=== PATIENT | male | born 1990 | race Caucasian/White ===

== ENCOUNTER 2016-11-18 22:27 | Emergency (ER) | payer BC ==
--- NOTE | 2016-11-18 23:28 | ER NURSING DOCUMENTATION ---
Nurse's Notes [facility] Name:Tevin Parks Age:26 yrs Sex:Male :1990 Arrival Date:11/18/2016 Time:22:27 Bed6 Private MD:Physician, No Diagnosis:Thigh Contusion;Lower Limb Abrasion w/o Infection Presentation: 11/18 22:40 Presenting complaint: Patient states: Pt states he was sliding down snow up at [place] [facility] and ran into a rock at the bottom. No head injury reported. Only injury is abrasions to upper left thigh and leg with swelling to upper left thigh. Pt took 800mg ibuprofen and hiked out for 4 hours after injury. Transition of care: Home. Notified ED Physician of Dr. Hennessy notified. 22:40 Acuity: [place] 4 [facility] 22:40 Method Of Arrival: Walk In [facility] 22:43 Care prior to arrival: Medication(s) given: Ibuprofen. 2 Triage Assessment: 22:44 Compartment Syndrome symptoms: Unable to determine. General: Appears in no apparent 2 distress, Behavior is cooperative, pleasant. Pain: Complains of pain in lateral aspect of right thigh Pain currently is 5 out of 10 on a pain scale. Neuro: No deficits noted. Respiratory: Breath sounds are clear bilaterally. Musculoskeletal: Reports pain in lateral aspect of right thigh. Injury Description: Abrasion swelling. Historical: - Allergies: No known drug Allergies; - Home Meds: 1. None - PMHx: None; - PSHx: None; - Tetanus: < 10 years. - Ebola Screening: : Patient negative for fever greater than or equal to 101.5 degrees Fahrenheit, and additional compatible Ebola Virus Disease symptoms. Patient denies exposure to infectious person. Patient denies travel to an Ebola-affected area in the 21 days before illness onset. No symptoms or risks identified at this time. . - Immunization history: Flu Vaccine < 1 year. - Social history: Smoking status: Patient states was never smoker of tobacco. Patient/guardian denies using alcohol, street drugs. Screenin:46 Infectious Disease Risk None. Abuse screen: Denies threats or abuse. Nutritional mk2 screening: No deficits noted. Assessment: 22:46 See Triage Assessment done by same RN. 2 Vital Signs: 22:45 BP 139 / 74; Pulse 79; Resp 15; Temp 98.9; Pulse Ox 97% on R/A; Weight 73.48 kg; Height [facility] 5 ft. 10 in. (177.80 cm); Pain 5/10; 22:45 Body Mass Index 23.24 (73.48 kg, 177.80 cm) [facility] [place] Coma Score: 22:50 Eye Response: spontaneous(4). Verbal Response: oriented(5). Motor Response: obeys cd commands(6). Total: 15. ED Course: 22:32 Patient arrived in ED. [facility] 22:32 Physician, No is Private Physician. [email or web address] 22:40 Breonna Lockwood, RN is Primary Nurse. 2 22:42 Triage completed. 2 22:45 Arm band placed on Bed in low position Call Light in Reach Gowned HOB Elevated Side [facility] rails up x1. 22:46 Valuables Remains with patient. Ice pack to injury. 2 22:46 Wound care was cleaned with Hibiclens. [facility] 23:21 Fidencio Hennessy MD is Attending Physician. cd Administered Medications: No medications were administered Outcome: 23:22 Discharge ordered by . cd 23:27 Discharged to home ambulatory. [facility] 23:27 Condition: good 23:27 Discharge Assessment: Patient awake, alert and oriented x 3. No cognitive and/or functional deficits noted. Patient verbalized understanding of disposition instructions. 23:27 Discharge instructions given to patient, Instructed on discharge instructions, follow up and referral plans. medication usage. 23:27 Patient left the ED. [facility] 11/19 12:26 Discharge F/U Call: Unable to reach: left voicemail: tg Signatures: Mahesh Nance RN RN tg Daley, Chris, MD MD cd Kruger, Meg RN RN Lyndsay Sims [facility]
--- NOTE | 2016-11-18 23:28 | ER PHYSICIAN DOCUMENTATION ---
Physician Documentation [facility] Name:Tevin Parks Age:26 yrs Sex:Male :1990 Arrival Date:11/18/2016 Time:22:27 Bed6 Private MD:Physician, No ED Fidencio Downing Disposition: 11/18/16 23:22 Discharged to Home/Self Care. Impression: Thigh Contusion, Lower Limb Abrasion w/o Infection. - Condition is Good. - Discharge Instructions: ABRASION, CONTUSION, Lower Extremity. - Medical Reconciliation form form. - Follow up: Private Physician; When: 7 - 10 days; Reason: Recheck today's complaints, Continuance of care. - Problem is new. - Symptoms have improved. HPI: 11/18 22:45 This 26 yrs old Male presents to ER via Walk In with complaints of Leg Injury cd - RIGHT. 22:45 The patient presents with an abrasion, a contusion. The complaints affect the lateral cd aspect of right thigh. Context: The problem was sustained outdoors, resulted from a direct blow, to a rock while sliding down a snow slope in [facility], the patient can fully bear weight, the patient is able to ambulate, without difficulty, Patient [place]. Onset: The symptom(s)/episode began/occurred acutely, today. Associated signs and symptoms: The patient has no apparent associated signs or symptoms. Severity of symptoms: At their worst the symptoms were moderate, in the emergency department the symptoms have improved, moderately. The patient has not experienced similar symptoms in the past. Historical: - Allergies: No known drug Allergies; - Home Meds: 1. None - PMHx: None; - PSHx: None; - Tetanus: < 10 years. - Ebola Screening: : Patient negative for fever greater than or equal to 101.5 degrees Fahrenheit, and additional compatible Ebola Virus Disease symptoms. Patient denies exposure to infectious person. Patient denies travel to an Ebola-affected area in the 21 days before illness onset. No symptoms or risks identified at this time. . - Immunization history: Flu Vaccine < 1 year. - Social history: Smoking status: Patient states was never smoker of tobacco. Patient/guardian denies using alcohol, street drugs. ROS: 22:50 ENT: Negative for injury, pain, epistaxis and discharge. cd Neck: Negative for injury, pain, stiffness and swelling. Cardiovascular: Negative for chest pain, palpitations, edema and pleuritic pain. Respiratory: Negative for shortness of breath, dyspnea on exertion, cough, sputum production, wheezing, hemoptysis and pleuritic chest pain. Abdomen/GI: Negative for abdominal pain, nausea, vomiting, diarrhea, constipation, distension, melena, hematochezia and hematemesis. Back: Negative for injury, pain or muscle spasms. 22:50 Neuro: Negative for headache, weakness, numbness, tingling, and seizure. cd 22:50 Constitutional: Positive for poor PO intake. 22:50 MS/extremity: Positive for abrasion, contusion, ecchymosis, swelling, tenderness, of the lateral aspect of right thigh, Negative for decreased range of motion, deformity, laceration. 22:50 All other systems are negative. Exam: Head/Face: Normocephalic, atraumatic. Neck: Trachea midline, no thyromegaly or masses palpated, and no cervical lymphadenopathy. Supple, full range of motion without nuchal rigidity, or vertebral point tenderness. No Meningismus. Chest/axilla: Normal chest wall appearance and motion. Nontender with no deformity. No lesions are appreciated. Cardiovascular: Regular rate and rhythm with a normal S1 and S2. No gallops, murmurs, or rubs. Normal PMI, no JVD. No pulse deficits. Respiratory: Lungs have equal breath sounds bilaterally, clear to auscultation and percussion. No rales, rhonchi or wheezes noted. No increased work of breathing, no retractions or nasal flaring. Abdomen/GI: Soft, non-tender, with normal bowel sounds. No distension or tympany. No guarding or rebound. No evidence of tenderness throughout. Back: No spinal tenderness. No costovertebral tenderness. Full range of motion. Skin: Warm, dry with normal turgor. Normal color with no rashes, no lesions, and no evidence of cellulitis. 22:50 Neuro: Awake and alert, GCS 15, oriented to person, place, time, and situation. cd Cranial nerves II-XII grossly intact. Motor strength 5/5 in all extremities. Sensory grossly intact. Cerebellar exam normal. Normal gait. 22:50 Constitutional: The patient appears alert, awake, non-diaphoretic, non-toxic, well developed, well nourished, in obvious distress, mildly distressed. 22:50 Musculoskeletal/extremity: Extremities: grossly normal except: noted in the lateral aspect of right thigh: abrasion, contusion, swelling, tenderness, ROM: no acute changes, Circulation is intact in all extremities. Sensation intact. Joints: All joints appear normal with full range of motion. Weight bearing: able to fully bear weight, without difficulty. Vital Signs: 22:45 BP 139 / 74; Pulse 79; Resp 15; Temp 98.9; Pulse Ox 97% on R/A; Weight 73.48 kg; Height mk2 5 ft. 10 in. (177.80 cm); Pain 5/10; 22:45 Body Mass Index 23.24 (73.48 kg, 177.80 cm) mk2 [place] Coma Score: 22:50 Eye Response: spontaneous(4). Verbal Response: oriented(5). Motor Response: obeys cd commands(6). Total: 15. MDM: 22:35 Data interpreted: Pulse oximetry: on room air is 97 %. Interpretation: normal. cd 23:15 Data reviewed: vital signs, nurses notes, old medical records, and as a result, I will cd discharge patient. 23:20 Counseling: I had a detailed discussion with the patient and/or guardian regarding: the cd historical points, exam findings, and any diagnostic results supporting the discharge/admit diagnosis, the need for outpatient follow up, for a recheck, with the patient's primary care provider, to return to the emergency department if symptoms worsen or persist or if there are any questions or concerns that arise at home. Response to treatment: the patient's symptoms have markedly improved after treatment, the patient's condition has returned to base line, and as a result, I will discharge patient. 23:21 Patient medically screened. cd Dispensed Medications: No medications were administered Signatures: Fidencio Hennessy MD MD cd Kruger, Meg RN RN mk2
== END 2016-11-18 23:28 | disposition home or self-care (01) ==
LOC: ER 22:27
DX: S70.11XA Contusion of right thigh, initial encounter (principal); S70.311A Abrasion, right thigh, initial encounter; W00.2XXA Other fall from one level to another due to ice and snow, initial encounter; Y92.838 Other recreation area as the place of occurrence of the external cause; Y93.29 Activity, other involving ice and snow
CPT/HCPCS: 99283